=== PATIENT | male | born 1960 | race Caucasian/White ===

== ENCOUNTER 2020-09-29 08:09 | Emergency (ER) | payer OTHER ==
--- NOTE | 2020-09-29 10:49 | EDM.PDOC ---
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 He cut his Lt thumb while cutting meat this morning. He stated he can still bend the thumb fairly well. 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 Skin: Reports: Other (laceration on dorsum of Lt thumb. U shaped and 5.5 cm. ) ED EXAM, SKIN/RASH Exam: See Below Skin: Other (U shaped laceration on dorsum of Lt thumb. 7 cm in length. Small amount of bleeding. Pt can bend the thumb about 50% with some strength against resistance.) ED SKIN PROCEDURES - Laceration/Wound Repair Left Dorsal Digit - 1st (Thumb) Appearance: Other (U shaped laceration on dorsum of Lt thumb. 7 cm in length. Thru the epidermis and slightly deeper on the proximal end. ) Distal NVT: Neuro & Vascular Intact, Other (No obvious tendon injury.) Local Anesthesia - Lidocaine (Xylocaine): 1% Plain Local Anesthetic Volume: 3cc Skin Prep: Chlorhexidine (Hibiciens) Exploration/Debridement/Repair: Wound Explored, No Foreign Material Found Closed with: Sutures Lac/Wound length In cm: 7 Suture Size: 5-0 Suture Type: Nylon Course - Vital Signs Text/Narrative:: Wound was cleansed by nursing. I examined the wound by lifting the distal end of the laceration. I do not see any FB. Last Recorded V/S: Last Vital Signs Temp 97 F 09/29/20 08:24 Pulse Resp 16 09/29/20 08:24 BP Pulse Ox Departure - Departure Time of Disposition: 08:55 Disposition: Home, Self-Care 01 Condition: Good Clinical Impression: Laceration of finger of left hand Qualifiers: Encounter type: initial encounter Finger: thumb Damage to nail status: without damage Foreign body presence: without foreign body Qualified Code(s): S61.012A - Laceration without foreign body of left thumb without damage to nail, initial encounter - Discharge Information *PRESCRIPTION DRUG MONITORING PROGRAM REVIEWED*: Yes *COPY OF PRESCRIPTION DRUG MONITORING REPORT IN PATIENT TORI: Yes Instructions: Laceration Care, Adult Referrals: PCP,None [Primary Care Provider] - Forms: ED Department Discharge Additional Instructions: Change dressing daily for 2-3 days. Use finger splint until seen in clinic. Keflex will be started for 4 days. Follow up in clinic Saturday, sooner prn. Care Plan Goals: follow up early next week at clinic. Sutures out 7-10 days. off work through 10-03-20 take antibiotics as directed. ultram 50mg as needed for pain. f/u at clinic at 10 am Saturday with Sepsis Event Note (ED) - Evaluation Sepsis Screening Result: No Definite Risk - Focused Exam Vital Signs: Vital Signs Temp Resp 09/29/20 08:24 97 F 16
== END 2020-09-29 09:01 | disposition home or self-care (01) ==
LOC: LB.ED 08:09
DX: S61.012A Laceration without foreign body of left thumb without damage to nail, initial encounter (principal); Z72.0 Tobacco use; W26.8XXA Contact with other sharp object(s), not elsewhere classified, initial encounter
CPT/HCPCS: 12002; 99282-25

== ENCOUNTER 2021-04-19 13:01 | Emergency (ER) | payer OTHER, BC ==
[2021-04-19] MEDS ORDERED: Diphtheria,Pertussis(Acell),Tetanus Vaccine 0.5 ML SDV IM ONE (13:30)
== END 2021-04-19 13:50 | disposition home or self-care (01) ==
LOC: LB.ED 13:01
DX: S61.213A Laceration without foreign body of left middle finger without damage to nail, initial encounter (principal); Z72.0 Tobacco use; Z23 Encounter for immunization; W26.0XXA Contact with knife, initial encounter; Y99.0 Civilian activity done for income or pay
CPT/HCPCS: 12001; 90471; 90715; 99282-25